=== PATIENT | male | born 1955 | race Caucasian/White ===

== ENCOUNTER 2022-02-26 08:39 | Emergency (ER) | payer BC, MEDICARE ==
[~2022-02-26] VITALS: Ht 182.9 cm; Wt 149.5 kg
[~2022-02-26 08:39] MED LIST: /LOR25TA PO; ACET-654 PO; BISA10SU PR; BISAC5TA PO; COUM1TAB14 OR; COUM1TAB17 PO; DOCU5LIQ PO; HYDR10EL PO; LOVE1INJ SQ; LOVE1INJ SUBQ; MOM30SS OR; MOM30SS PO; OXYC-208 PO; PRED1TAB32 PO; REQU1TAB15 GT; TRIA0.1C60 EXT; XANA0.25 PO; ZANT150T PO; [UNRECOGNIZED DRUG - CODE] EXT
[2022-02-26] MEDS ORDERED: LIDOCAINE VISCOUS 2% SOLN 15ML UDC MT ONE (12:45)
[2022-02-26] MEDS ORDERED: ACETAMINOPHEN 500 MG TAB PO ONE (12:45)
[2022-02-26] MEDS ORDERED: NS 1,000 ML IV ONE (12:45)
[2022-02-26 13:34] LABS: BASO # 0.1 10^3/uL (0.0-0.2); BASO % 0.7 % (0.0-1.0); EOS % 0.1 % (0.0-3.0); LYMPH # 1.6 10^3/uL (1.5-5.0); LYMPH % 21.9 % (24.0-44.0); MEAN CORPUSCULAR HGB CONC 33.8 g/dl (32.0-36.5); MEAN CORPUSCULAR VOLUME 91.8 fl (80.0-96.0); MONO # 0.7 10^3/uL (0.0-0.8); MONO % 9.8 % (2.0-8.0); NEUTROPHILS # 4.8 10^3/uL (1.5-8.5); NEUTROPHILS % 67.1 % (36.0-66.0); PLATELET COUNT, AUTOMATED 204 10^3/uL (150-450); WHITE BLOOD COUNT 7.1 10^3/uL (4.0-10.0)
[2022-02-26 13:41] LABS: RED BLOOD COUNT 5.84 10^6/uL (4.30-6.10)
[2022-02-26 13:42] LABS: HEMATOCRIT 53.6 % (42.0-52.0); HEMOGLOBIN 18.1 g/dl (13.5-17.5)
[2022-02-26 14:04] LABS: FREE T4 1.03 NG/DL (0.89-1.76); THYROID STIMULATING HORMONE 0.623 uIU/ML (0.55-4.78)
[2022-02-26 14:34] LABS: ALBUMIN 3.9 G/DL (3.2-5.2); BILIRUBIN,DIRECT 0.4 MG/DL (<0.4); CALCIUM LEVEL 8.5 MG/DL (8.3-10.6); CREATININE FOR GFR 1.69 MG/DL (0.70-1.30); GLOMERULAR FILTRATION RATE 43.2 (>49); POTASSIUM SERUM 4.8 MMOL/L (3.5-5.1); TOTAL PROTEIN 7.1 G/DL (5.7-8.2)
[2022-02-26] MEDS ORDERED: LIDO2SOL17 PO (14:44)
[2022-02-26 14:50] VITALS: BP 121/76
== END 2022-02-26 15:08 | disposition home or self-care (01) ==
LOC: M ED 08:39
DX: B97.89 Other viral agents as the cause of diseases classified elsewhere (principal); B34.1 Enterovirus infection, unspecified; B34.0 Adenovirus infection, unspecified; K21.9 Gastro-esophageal reflux disease without esophagitis; N40.0 Benign prostatic hyperplasia without lower urinary tract symptoms; E03.9 Hypothyroidism, unspecified; C43.9 Malignant melanoma of skin, unspecified; Z87.01 Personal history of pneumonia (recurrent); G47.33 Obstructive sleep apnea (adult) (pediatric); Z79.899 Other long term (current) drug therapy; Z79.01 Long term (current) use of anticoagulants; Z91.041 Radiographic dye allergy status; Z88.1 Allergy status to other antibiotic agents

== ENCOUNTER 2023-03-01 17:16 | Inpatient (IN) | payer BC, MEDICARE ==
[~2023-03-01] VITALS: Ht 182.9 cm; Wt 159.5 kg
[2023-03-01] VITALS (11 sets, daily range): BP systolic 100–119; BP diastolic 56–69; TEMP 98.1; O2SAT 92–96
[~2023-03-01 17:16] MED LIST changes: +LIDO15SO PO
[2023-03-01 18:04] LABS: BASO # 0.1 10^3/uL (0.0-0.2); BASO % 0.3 % (0.0-1.0); EOS % 0.2 % (0.0-3.0); HEMATOCRIT 55.6 % (42.0-52.0); HEMOGLOBIN 17.9 g/dl (13.5-17.5); LYMPH # 1.1 10^3/uL (1.5-5.0); LYMPH % 7.6 % (24.0-44.0); MEAN CORPUSCULAR HEMOGLOBIN 29.7 pg (27.0-33.0); MEAN CORPUSCULAR HGB CONC 32.2 g/dl (32.0-36.5); MEAN CORPUSCULAR VOLUME 92.4 fl (80.0-96.0); MONO # 0.5 10^3/uL (0.0-0.8); MONO % 3.4 % (2.0-8.0); NEUTROPHILS % 87.3 % (36.0-66.0); PLATELET COUNT, AUTOMATED 190 10^3/uL (150-450); RED BLOOD COUNT 6.02 10^6/uL (4.30-6.10); WHITE BLOOD COUNT 14.9 10^3/uL (4.0-10.0)
[2023-03-01] MEDS ORDERED: NS IV STA (18:12)
[2023-03-01 18:13] LABS: ERYTHROCYTE SEDIMENTATION RATE 19 mm/hr (0-20)
[2023-03-01 18:15] LABS: INR 1.15; PROTHROMBIN TIME 14.4 SECONDS (12.5-14.5)
[2023-03-01] MEDS ORDERED: LevoFLOXacin IV 750 MG in IV 1 EA IV ONE (18:15)
[2023-03-01] MEDS ORDERED: ACETAMINOPHEN TAB 650MG DOSE (2X325MG) PO ONE (18:25)
[2023-03-01 18:30] LABS: C REACTIVE PROTEIN QUANTITATIV 4.5 MG/DL (<1.0)
[2023-03-01] MEDS ORDERED: HYDROCORTISONE 100MG/2ML VIAL IV ONE (18:30)
[2023-03-01 18:31] LABS: CALCIUM LEVEL 8.6 MG/DL (8.3-10.6); CREATININE FOR GFR 2.16 MG/DL (0.70-1.30); GLOMERULAR FILTRATION RATE 32.4 (>49); POTASSIUM SERUM 3.5 MMOL/L (3.5-5.1)
[2023-03-01 18:33] LABS: THYROID STIMULATING HORMONE 1.521 uIU/ML (0.55-4.78)
[2023-03-01 18:34] LABS: FREE T4 0.86 NG/DL (0.89-1.76)
[2023-03-01] MEDS: NOREPINEPHRINE 4MG IN D5 250ML 4 MG in IV 1 EA IV SCH ×6 (18:42→22:09)
[2023-03-01 18:54] LABS: RSV AMPLIFICATION NEGATIVE (NEGATIVE)
[2023-03-01 19:00] LABS: ABG BASE EXCESS -1.2 (-2.0-2.0); ABG HCO3 23.1 MMOL/L (22.0-26.0); ABG O2 SATURATION 93.7 % (95.0-99.0); ABG PARTIAL PRESSURE O2 63.4 mmHg (75.0-100.0); ABG STANDARD HCO3 23.3 MMOL/L. (22.0-26.0); ABG TOTAL CO2 24.3 MMOL/L (23.0-31.0); ABG pH (ARTERIAL) 7.402 UNITS (7.350-7.450)
[2023-03-01] MEDS ORDERED: MED REC IN PROGRESS XX SCH (19:45)
[2023-03-01] MEDS ORDERED: LR 1,000 ML IV ONE (20:15)
[2023-03-01] MEDS ORDERED: BASA100I SC (20:39)
[2023-03-01] MEDS ORDERED: CHOL125C6 PO (20:39)
[2023-03-01] MEDS ORDERED: FURO20TA2 PO (20:39)
[2023-03-01] MEDS ORDERED: HYDR-4468 PO ×2 (20:39)
[2023-03-01] MEDS ORDERED: TEST1INJ3 IM (20:39)
[2023-03-01] MEDS ORDERED: POTA-151 PO (20:39)
[2023-03-01] MEDS ORDERED: LEVO100T5 PO (20:39)
[2023-03-01] MEDS ORDERED: MORP30TASA PO (20:39)
[2023-03-01] MEDS ORDERED: ECOT81TA5 PO (20:39)
[2023-03-01] MEDS ORDERED: HYDR-3719 PO (20:39)
[2023-03-01] MEDS ORDERED: THERTAB21 PO (20:39)
[2023-03-01] MEDS ORDERED: HOME MED LIST COMPLETE! XX SCH (20:40)
[2023-03-01] MEDS: HEPARIN SOD (PORCINE) 5000UNITS/ML 1ML VIAL/SYRINGE SC SCH (22:09)
[2023-03-02] VITALS (37 sets, daily range): BP systolic 83–134; BP diastolic 50–74; TEMP 98.4–102.8; O2SAT 90–100
[2023-03-02] MEDS: NOREPINEPHRINE 4MG IN D5 250ML 4 MG in IV 1 EA IV SCH ×4 (04:25→11:05)
[2023-03-02 05:37] LABS: BASO # 0.1 10^3/uL (0.0-0.2); BASO % 0.4 % (0.0-1.0); HEMATOCRIT 57.4 % (42.0-52.0); HEMOGLOBIN 18.6 g/dl (13.5-17.5); LYMPH # 0.9 10^3/uL (1.5-5.0); MEAN CORPUSCULAR HGB CONC 32.4 g/dl (32.0-36.5); MEAN CORPUSCULAR VOLUME 92.4 fl (80.0-96.0); MONO # 0.6 10^3/uL (0.0-0.8); MONO % 2.5 % (2.0-8.0); NEUTROPHILS # 20.2 10^3/uL (1.5-8.5); NEUTROPHILS % 87.6 % (36.0-66.0); PLATELET COUNT, AUTOMATED 197 10^3/uL (150-450); RED BLOOD COUNT 6.21 10^6/uL (4.30-6.10)
[2023-03-02] MEDS ORDERED: ACETAMINOPHEN *IV* 1,000 MG in IV 1 EA IV ONE (06:00)
[2023-03-02] MEDS ORDERED: NS 1,000 ML IV SCH (06:00)
[2023-03-02] MEDS: HEPARIN SOD (PORCINE) 5000UNITS/ML 1ML VIAL/SYRINGE SC SCH ×3 (06:15→21:25)
[2023-03-02] MEDS: ANUSOL HC 25MG SUPP PR SCH ×2 (06:15)
[2023-03-02 07:05] LABS: ALBUMIN 2.7 G/DL (3.2-5.2); BILIRUBIN,TOTAL 1.3 MG/DL (0.3-1.2); CALCIUM LEVEL 7.7 MG/DL (8.3-10.6); CREATININE FOR GFR 2.68 MG/DL (0.70-1.30); GLOMERULAR FILTRATION RATE 25.3 (>49); MAGNESIUM LEVEL 1.3 MG/DL (1.8-2.4); PHOSPHORUS LEVEL 3.2 MG/DL (2.4-5.1); POTASSIUM SERUM 4.9 MMOL/L (3.5-5.1); TOTAL PROTEIN 5.2 G/DL (5.7-8.2)
[2023-03-02] MEDS ORDERED: LINEZOLID 600 MG in IV 1 EA IV SCH (07:55)
[2023-03-02] MEDS ORDERED: MEROPENEM INJ 2 GM in NS 100 ML IV SCH (07:55)
[2023-03-02] MEDS ORDERED: LR 1,000 ML IV ONE (07:55)
[2023-03-02] MEDS ORDERED: GLUCOSE 4GM CHEW TABLET PO PRN (08:10)
[2023-03-02] MEDS ORDERED: DEXTROSE 50% 50ML SYRINGE IV PRN (08:10)
[2023-03-02] MEDS ORDERED: GLUCAGON INJ 1MG VIAL SC PRN (08:10)
[2023-03-02] MEDS: DOCUSATE SODIUM 100MG CAPSULE PO SCH (09:28)
[2023-03-02] MEDS: MAG SULF 1GM/100ML (MAG RUN) 1 GM in IV 1 EA IV SCH ×2 (09:37→10:43)
[2023-03-02] MEDS ORDERED: MEROPENEM INJ 1 GM in IV 1 EA IV ONE (10:00)
[2023-03-02] MEDS: ACETAMINOPHEN TAB 650MG DOSE (2X325MG) PO PRN ×2 (10:07→11:24)
[2023-03-02] MEDS: HYDROCORTISONE 100MG/2ML VIAL IV SCH ×2 (11:18→17:09)
[2023-03-02] MEDS: INSULIN LISPRO (NovoLOG) PER UNIT SC SCH ×2 (12:00→16:44)
[2023-03-02] MEDS: LINEZOLID 600MG TABLET (ZYVOX) PO SCH ×2 (12:43→20:14)
[2023-03-02] MEDS ORDERED: D5W/0.9% SODIUM CHLORIDE 1,000 ML IV SCH (13:40)
[2023-03-02] MEDS ORDERED: metroNIDAZOLE (FLAGYL) 500MG TABLET PO SCH (14:00)
[2023-03-02 14:52] LABS: C REACTIVE PROTEIN QUANTITATIV 22.1 MG/DL (<1.0)
[2023-03-02] MEDS: CEFEPIME HCL 2 GM in D5W MINI-BAG PLUS 50 ML IV SCH (15:48)
[2023-03-02] MEDS: SENNA 8.6 MG TAB (SENOKOT) PO SCH (20:14)
[2023-03-03] VITALS (21 sets, daily range): BP systolic 94–144; BP diastolic 50–93; TEMP 97.8–100.1; O2SAT 93–99
[2023-03-03] MEDS: HYDROCORTISONE 100MG/2ML VIAL IV SCH ×4 (00:42→20:16)
[2023-03-03] MEDS: CEFEPIME HCL 2 GM in D5W MINI-BAG PLUS 50 ML IV SCH ×2 (03:32→15:09)
[2023-03-03] MEDS ORDERED: MORPHINE 30 MG SA TAB PO ONE (04:00)
[2023-03-03 05:10] LABS: BASO # 0.1 10^3/uL (0.0-0.2); BASO % 0.3 % (0.0-1.0); EOS # 0.8 10^3/uL (0.0-0.5); EOS % 4.3 % (0.0-3.0); HEMATOCRIT 48.5 % (42.0-52.0); LYMPH # 0.7 10^3/uL (1.5-5.0); LYMPH % 3.7 % (24.0-44.0); MEAN CORPUSCULAR HEMOGLOBIN 29.5 pg (27.0-33.0); MEAN CORPUSCULAR HGB CONC 32.6 g/dl (32.0-36.5); MEAN CORPUSCULAR VOLUME 90.5 fl (80.0-96.0); MONO # 0.5 10^3/uL (0.0-0.8); MONO % 2.7 % (2.0-8.0); NEUTROPHILS # 15.1 10^3/uL (1.5-8.5); NEUTROPHILS % 87.1 % (36.0-66.0); PLATELET COUNT, AUTOMATED 161 10^3/uL (150-450); RED BLOOD COUNT 5.36 10^6/uL (4.30-6.10); WHITE BLOOD COUNT 17.4 10^3/uL (4.0-10.0)
[2023-03-03 05:34] LABS: HEMOGLOBIN 15.8 g/dl (13.5-17.5)
[2023-03-03 05:38] LABS: HEMOGLOBIN A1c 5.6 % (4.0-6.0)
[2023-03-03 05:47] LABS: ALBUMIN 2.5 G/DL (3.2-5.2); BILIRUBIN,TOTAL 1.6 MG/DL (0.3-1.2); CALCIUM LEVEL 7.6 MG/DL (8.3-10.6); CREATININE FOR GFR 2.3 MG/DL (0.70-1.30); GLOMERULAR FILTRATION RATE 30.2 (>49); MAGNESIUM LEVEL 1.8 MG/DL (1.8-2.4); POTASSIUM SERUM 4.5 MMOL/L (3.5-5.1); TOTAL PROTEIN 5.1 G/DL (5.7-8.2)
[2023-03-03] MEDS: HEPARIN SOD (PORCINE) 5000UNITS/ML 1ML VIAL/SYRINGE SC SCH ×3 (06:11→20:17)
[2023-03-03] MEDS: INSULIN LISPRO (NovoLOG) PER UNIT SC SCH ×3 (07:30→17:30)
[2023-03-03] MEDS: LINEZOLID 600MG TABLET (ZYVOX) PO SCH ×2 (10:05→20:16)
[2023-03-03] MEDS: DOCUSATE SODIUM 100MG CAPSULE PO SCH (10:05)
[2023-03-03] MEDS ORDERED: PERCOCET 5MG/325MG TAB PO PRN (14:30)
[2023-03-03] MEDS ORDERED: TESTOSTERONE CYPIONATE 100 MG IM SCH (14:30)
[2023-03-03] MEDS: NS 1,000 ML IV SCH (14:58)
[2023-03-03] MEDS ORDERED: ANEXSIA, NORCO 7.5MG/325MG TABLET(HYDROCODONE/APAP) PO PRN (15:05)
[2023-03-03] MEDS: MORPHINE 30 MG SA TAB PO PRN (15:40)
[2023-03-03] MEDS: ASPIRIN 81MG ENTERIC TABLET PO SCH (20:17)
[2023-03-03] MEDS: SENNA 8.6 MG TAB (SENOKOT) PO SCH (20:17)
[2023-03-03] MEDS: MULTIVITAMINS/MINERALS THERAP 1 TAB PO SCH (20:17)
[2023-03-04] MEDS: CEFEPIME HCL 2 GM in D5W MINI-BAG PLUS 50 ML IV SCH ×2 (03:27→15:34)
[2023-03-04] MEDS: NS 1,000 ML IV SCH (03:27)
[2023-03-04] MEDS: HYDROCORTISONE 100MG/2ML VIAL IV SCH ×2 (03:28→18:04)
[2023-03-04 03:32] VITALS: BP 127/66; TEMP 97.9; O2SAT 95
[2023-03-04] MEDS: HEPARIN SOD (PORCINE) 5000UNITS/ML 1ML VIAL/SYRINGE SC SCH ×3 (05:29→21:10)
[2023-03-04] MEDS: LEVOTHYROXINE 100MCG TABLET (0.1MG) PO SCH (05:29)
[2023-03-04] MEDS: MORPHINE 30 MG SA TAB PO PRN ×2 (05:30→21:11)
[2023-03-04 06:27] LABS: BASO % 0.2 % (0.0-1.0); EOS % 0.1 % (0.0-3.0); HEMATOCRIT 47.6 % (42.0-52.0); HEMOGLOBIN 15.6 g/dl (13.5-17.5); LYMPH # 0.9 10^3/uL (1.5-5.0); LYMPH % 6.2 % (24.0-44.0); MEAN CORPUSCULAR HEMOGLOBIN 29.8 pg (27.0-33.0); MEAN CORPUSCULAR HGB CONC 32.8 g/dl (32.0-36.5); MEAN CORPUSCULAR VOLUME 90.8 fl (80.0-96.0); MONO # 0.6 10^3/uL (0.0-0.8); MONO % 3.9 % (2.0-8.0); NEUTROPHILS # 13.3 10^3/uL (1.5-8.5); NEUTROPHILS % 88.5 % (36.0-66.0); PLATELET COUNT, AUTOMATED 181 10^3/uL (150-450); RED BLOOD COUNT 5.24 10^6/uL (4.30-6.10)
[2023-03-04 06:40] LABS: ALBUMIN 2.5 G/DL (3.2-5.2); ALKALINE PHOSPHATASE 111 U/L (46-116); ALT/SGPT 70 U/L (7.0-40); AST/SGOT 91 U/L (<34); BILIRUBIN,TOTAL 1.3 MG/DL (0.3-1.2); BLOOD UREA NITROGEN 28 MG/DL (9-23); CALCIUM LEVEL 7.7 MG/DL (8.3-10.6); CARBON DIOXIDE LEVEL 23 MMOL/L (20-31); CHLORIDE LEVEL 110 MMOL/L (98-107); CREATININE FOR GFR 1.81 MG/DL (0.70-1.30); GLOMERULAR FILTRATION RATE 39.8 (>49); GLUCOSE, FASTING 121 MG/DL (74-106); MAGNESIUM LEVEL 2.1 MG/DL (1.8-2.4); POTASSIUM SERUM 4.6 MMOL/L (3.5-5.1); SODIUM LEVEL 141 MMOL/L (136-145); TOTAL PROTEIN 5.3 G/DL (5.7-8.2)
[2023-03-04] MEDS: INSULIN LISPRO (NovoLOG) PER UNIT SC SCH ×3 (07:24→16:52)
[2023-03-04 07:49] VITALS: BP 152/86; TEMP 98; O2SAT 94
[2023-03-04 07:57] LABS: HEPATITIS C VIRUS ABY INDEX 0.04 INDEX (<0.8)
[2023-03-04 07:58] LABS: HEPATITIS B CORE ANTIBODY IGM NEGATIVE (NEGATIVE)
[2023-03-04] MEDS: VITAMIN D 1,000 INTERNATIONAL UNITS TABLET PO SCH (08:21)
[2023-03-04] MEDS: DOCUSATE SODIUM 100MG CAPSULE PO SCH (08:21)
[2023-03-04] MEDS: LINEZOLID 600MG TABLET (ZYVOX) PO SCH ×2 (08:21→21:11)
[2023-03-04 12:05] VITALS: BP 137/79; TEMP 98; O2SAT 91
[2023-03-04] MEDS ORDERED: FUROSEMIDE 20MG/2ML VIAL IV ONE (15:20)
[2023-03-04 16:00] VITALS: BP 147/86; TEMP 98; O2SAT 94
[2023-03-04 20:16] VITALS: BP 152/113; TEMP 97.9; O2SAT 95
[2023-03-04] MEDS: SENNA 8.6 MG TAB (SENOKOT) PO SCH (21:00)
[2023-03-04] MEDS: ASPIRIN 81MG ENTERIC TABLET PO SCH (21:10)
[2023-03-04] MEDS: MULTIVITAMINS/MINERALS THERAP 1 TAB PO SCH (21:11)
[2023-03-04 23:09] VITALS: BP 146/77; TEMP 98.7; O2SAT 94
[2023-03-05 03:00] VITALS: BP 163/94; TEMP 97.4; O2SAT 97
[2023-03-05] MEDS: LEVOTHYROXINE 100MCG TABLET (0.1MG) PO SCH (05:04)
[2023-03-05] MEDS: CEFEPIME HCL 2 GM in D5W MINI-BAG PLUS 50 ML IV SCH (05:05)
[2023-03-05] MEDS: HEPARIN SOD (PORCINE) 5000UNITS/ML 1ML VIAL/SYRINGE SC SCH ×2 (05:05→13:56)
[2023-03-05] MEDS: HYDROCORTISONE 100MG/2ML VIAL IV SCH (05:05)
[2023-03-05 07:09] LABS: BASO # 0.1 10^3/uL (0.0-0.2); BASO % 0.6 % (0.0-1.0); EOS # 0.1 10^3/uL (0.0-0.5); EOS % 0.9 % (0.0-3.0); HEMATOCRIT 46.7 % (42.0-52.0); HEMOGLOBIN 15.1 g/dl (13.5-17.5); LYMPH # 1.4 10^3/uL (1.5-5.0); LYMPH % 15.3 % (24.0-44.0); MEAN CORPUSCULAR HEMOGLOBIN 29.4 pg (27.0-33.0); MEAN CORPUSCULAR HGB CONC 32.3 g/dl (32.0-36.5); MONO # 0.6 10^3/uL (0.0-0.8); MONO % 6.6 % (2.0-8.0); NEUTROPHILS # 6.9 10^3/uL (1.5-8.5); NEUTROPHILS % 75.9 % (36.0-66.0); PLATELET COUNT, AUTOMATED 180 10^3/uL (150-450); RED BLOOD COUNT 5.13 10^6/uL (4.30-6.10); WHITE BLOOD COUNT 9.1 10^3/uL (4.0-10.0)
[2023-03-05 07:45] LABS: C REACTIVE PROTEIN QUANTITATIV 11.4 MG/DL (<1.0)
[2023-03-05 07:46] VITALS: BP 156/93; TEMP 98; O2SAT 97
[2023-03-05 07:47] LABS: ALBUMIN 2.4 G/DL (3.2-5.2); BILIRUBIN,TOTAL 0.9 MG/DL (0.3-1.2); CALCIUM LEVEL 8.2 MG/DL (8.3-10.6); CREATININE FOR GFR 1.66 MG/DL (0.70-1.30); GLOMERULAR FILTRATION RATE 43.9 (>49); MAGNESIUM LEVEL 1.9 MG/DL (1.8-2.4); POTASSIUM SERUM 4.2 MMOL/L (3.5-5.1); TOTAL PROTEIN 5.2 G/DL (5.7-8.2)
[2023-03-05] MEDS: INSULIN LISPRO (NovoLOG) PER UNIT SC SCH ×2 (08:37→12:00)
[2023-03-05] MEDS: DOCUSATE SODIUM 100MG CAPSULE PO SCH (08:37)
[2023-03-05] MEDS ORDERED: PILL CUTTER 1 EACH XX PRN (09:05)
[2023-03-05] MEDS: LINEZOLID 600MG TABLET (ZYVOX) PO SCH (09:07)
[2023-03-05] MEDS: MORPHINE 30 MG SA TAB PO PRN (09:07)
[2023-03-05] MEDS: VITAMIN D 1,000 INTERNATIONAL UNITS TABLET PO SCH (09:07)
[2023-03-05] MEDS ORDERED: LINE1TAB6 PO (11:18)
[2023-03-05] MEDS ORDERED: FURO20TA2 PO (11:21)
[2023-03-05] MEDS ORDERED: HYDR-4468 PO ×2 (11:29→11:32)
[2023-03-05] MEDS ORDERED: POTA-150 PO (11:32)
[2023-03-05] MEDS ORDERED: HYDROCORTISONE 10 MG TAB PO SCH (21:00)
== END 2023-03-05 14:29 | disposition home or self-care (01) | DRG 720 ==
LOC: M ED 17:16 → EDBD 17:16 → EDSEX 17:16 → M ED INP 19:48 → ENRESERV 20:27 → M ICU 21:20 → M PCU 03-03 18:19
PROVIDERS: ADMIT Internal Medicine Pulmonary Disease; ATTEND Internal Medicine
PROC: B246ZZZ Ultrasonography of Right and Left Heart (ICD-10-PCS; principal; 2023-03-02)
DX: A41.9 Sepsis, unspecified organism (principal); R65.21 Severe sepsis with septic shock; N17.9 Acute kidney failure, unspecified; E87.20 Acidosis, unspecified; E13.22 Other specified diabetes mellitus with diabetic chronic kidney disease; E13.40 Other specified diabetes mellitus with diabetic neuropathy, unspecified; E27.2 Addisonian crisis; Z68.42 Body mass index [BMI] 45.0-49.9, adult; N18.30 Chronic kidney disease, stage 3 unspecified; R53.1 Weakness; E03.9 Hypothyroidism, unspecified; E66.9 Obesity, unspecified; E55.9 Vitamin D deficiency, unspecified; L03.115 Cellulitis of right lower limb; G47.33 Obstructive sleep apnea (adult) (pediatric); R74.01 Elevation of levels of liver transaminase levels; M79.89 Other specified soft tissue disorders; K59.09 Other constipation; Z98.1 Arthrodesis status; Z79.52 Long term (current) use of systemic steroids; Z79.899 Other long term (current) drug therapy; Z79.01 Long term (current) use of anticoagulants; Z88.1 Allergy status to other antibiotic agents; Z91.041 Radiographic dye allergy status; Z92.21 Personal history of antineoplastic chemotherapy; Z79.4 Long term (current) use of insulin; Z79.890 Hormone replacement therapy; Z85.820 Personal history of malignant melanoma of skin; Z96.643 Presence of artificial hip joint, bilateral; Z85.828 Personal history of other malignant neoplasm of skin; T38.0X5D Adverse effect of glucocorticoids and synthetic analogues, subsequent encounter; T45.1X5D Adverse effect of antineoplastic and immunosuppressive drugs, subsequent encounter; Z85.528 Personal history of other malignant neoplasm of kidney

== ENCOUNTER 2023-10-01 13:12 | Inpatient (IN) | payer BC, MEDICARE ==
[~2023-10-01] VITALS: Ht 182.9 cm; Wt 159.4 kg
[2023-10-01] MEDS: POTASSIUM CHLORIDE 10MEQ SR TABLET PO SCH (09:00)
[~2023-10-01 13:12] MED LIST changes: +BASA100I SC; +CHOL125C6 PO; +ECOT81TA5 PO; +FURO20TA2 PO; +HYDR-3719 PO; +HYDR-4468 PO; +LEVO100T5 PO; -LIDO15SO PO; +LIDO15SO8 PO; +LINE1TAB6 PO; +MORP30TASA PO; +POTA-150 PO; +POTA-151 PO; +TEST1INJ3 IM; +THERTAB21 PO
[2023-10-01 14:07] LABS: BASO # 0.1 10^3/uL (0.0-0.2); BASO % 0.6 % (0.0-1.0); EOS % 0.3 % (0.0-3.0); HEMATOCRIT 51.8 % (42.0-52.0); LYMPH # 1.2 10^3/uL (1.5-5.0); LYMPH % 13.6 % (24.0-44.0); MEAN CORPUSCULAR HEMOGLOBIN 29.1 pg (27.0-33.0); MEAN CORPUSCULAR HGB CONC 32.8 g/dl (32.0-36.5); MEAN CORPUSCULAR VOLUME 88.5 fl (80.0-96.0); MONO # 0.6 10^3/uL (0.0-0.8); MONO % 7.1 % (2.0-8.0); NEUTROPHILS # 7.1 10^3/uL (1.5-8.5); NEUTROPHILS % 77.7 % (36.0-66.0); PLATELET COUNT, AUTOMATED 189 10^3/uL (150-450); RED BLOOD COUNT 5.85 10^6/uL (4.30-6.10); WHITE BLOOD COUNT 9.1 10^3/uL (4.0-10.0)
[2023-10-01 14:15] LABS: ALBUMIN 3.8 G/DL (3.2-5.2); BILIRUBIN,TOTAL 1.9 MG/DL (0.3-1.2); CALCIUM LEVEL 8.4 MG/DL (8.3-10.6); CREATININE FOR GFR 1.81 MG/DL (0.70-1.30); GLOMERULAR FILTRATION RATE 39.7 (>42); POTASSIUM SERUM 3.8 MMOL/L (3.5-5.1); TOTAL PROTEIN 6.3 G/DL (5.7-8.2)
[2023-10-01] MEDS: ACETAMINOPHEN TAB 650MG DOSE (2X325MG) PO ONE (14:17)
[2023-10-01] MEDS ORDERED: VANCOMYCIN HCL 2,000 MG in D5W 500 ML IV ONE (15:30)
[2023-10-01] MEDS: HYDROCORTISONE 100MG/2ML VIAL IV ONE (15:40)
[2023-10-01] MEDS: PIPERACILLIN/TAZOBACTAM SOD 4.5 GM in D5W MINI-BAG PLUS 50 ML IV ONE (15:40)
[2023-10-01] MEDS: NS IV ONE (15:41)
[2023-10-01 15:43] LABS: INR 1.19; PARTIAL THROMBOPLASTIN TIME 30.5 SECONDS (24.8-34.2); PROTHROMBIN TIME 14.7 SECONDS (12.5-14.5)
[2023-10-01] MEDS: MORPHINE 4 MG/ML 1ML VIAL IV ONE (15:43)
[2023-10-01 15:48] LABS: C REACTIVE PROTEIN QUANTITATIV 9.2 MG/DL (<1.0)
[2023-10-01 16:01] LABS: PROCALCITONIN 0.3 ng/ml
[2023-10-01] MEDS ORDERED: VANCOMYCIN HCL 1,000 MG, VIAL MATE ADAPTER 1 EACH in D5W 250 ML IV SCH (16:45)
[2023-10-01 16:57] LABS: ABG BASE EXCESS -2.3 (-2.0-2.0); ABG HCO3 21.8 MMOL/L (22.0-26.0); ABG O2 SATURATION 94.8 % (95.0-99.0); ABG PARTIAL PRESSURE CO2 36.2 mmHg (35.0-45.0); ABG PARTIAL PRESSURE O2 71.1 mmHg (75.0-100.0); ABG STANDARD HCO3 22.5 MMOL/L. (22.0-26.0); ABG TOTAL CO2 22.9 MMOL/L (23.0-31.0); ABG pH (ARTERIAL) 7.398 UNITS (7.350-7.450)
[2023-10-01] MEDS: VANCOMYCIN HCL 1,000 MG, VIAL MATE ADAPTER 1 EACH in D5W 250 ML IV ONE ×2 (17:09→18:31)
[2023-10-01] MEDS ORDERED: AMOX500C PO (17:39)
[2023-10-01] MEDS ORDERED: LEVO100T5 PO (17:44)
[2023-10-01 17:45] VITALS: BP 134/85; TEMP 97.9; O2SAT 94
[2023-10-01] MEDS ORDERED: HOME MED LIST COMPLETE! XX SCH ×3 (17:45→19:05)
[2023-10-01 17:51] LABS: ERYTHROCYTE SEDIMENTATION RATE 34 mm/hr (0-20)
[2023-10-01] MEDS: MULTIVITAMINS/MINERALS THERAP 1 TAB PO SCH (18:32)
[2023-10-01] MEDS: ASPIRIN 81MG ENTERIC TABLET PO SCH (18:32)
[2023-10-01] MEDS ORDERED: GLUCOSE 4 GM CHEW PO PRN (18:35)
[2023-10-01] MEDS ORDERED: GLUCAGON INJ 1MG VIAL SC PRN (18:35)
[2023-10-01] MEDS ORDERED: DEXTROSE 50% 50ML SYRINGE IV PRN (18:35)
[2023-10-01] MEDS: ANEXSIA, NORCO 7.5MG/325MG TABLET(HYDROCODONE/APAP) PO ONE (18:45)
[2023-10-01] MEDS ORDERED: MORP30TASA PO (19:01)
[2023-10-01] MEDS: MORPHINE 10 MG/ML 1ML VIAL IV ONE (19:08)
[2023-10-01 19:36] VITALS: BP 140/88; TEMP 97.5; O2SAT 93
[2023-10-01] MEDS: MORPHINE 30 MG SA TAB PO PRN (20:23)
[2023-10-01 20:26] LABS: HEMOGLOBIN A1c 5.6 % (4.0-6.0)
[2023-10-01] MEDS: INSULIN LISPRO (NovoLOG) PER UNIT SC SCH (20:34)
[2023-10-01] MEDS ORDERED: HYDROCORTISONE 5MG TABLET PO SCH (21:00)
[2023-10-01] MEDS: HYDROMORPHONE HCL 0.5 MG/ 0.5 ML SYRINGE IV ONE ×2 (21:58→23:09)
[2023-10-01] MEDS: PIPERACILLIN/TAZOBACTAM SOD 3.375 GM in D5W MINI-BAG PLUS 50 ML IV SCH (23:09)
[2023-10-02] MEDS: ANEXSIA, NORCO 7.5MG/325MG TABLET(HYDROCODONE/APAP) PO PRN (00:18)
[2023-10-02] MEDS: HYDROMORPHONE HCL 0.5 MG/ 0.5 ML SYRINGE IV PRN (01:26)
[2023-10-02] MEDS: VANCOMYCIN HCL 750 MG, VIAL MATE ADAPTER 1 EACH in D5W 250 ML IV SCH ×2 (02:33→15:21)
[2023-10-02] MEDS: FIORICET TAB PO ONE ×2 (03:11→16:40)
[2023-10-02 04:00] VITALS: BP 132/73; TEMP 97.5; O2SAT 95
[2023-10-02 06:14] LABS: BASO % 0.5 % (0.0-1.0); EOS # 0.1 10^3/uL (0.0-0.5); EOS % 1.3 % (0.0-3.0); HEMATOCRIT 48.1 % (42.0-52.0); HEMOGLOBIN 15.6 g/dl (13.5-17.5); LYMPH # 0.7 10^3/uL (1.5-5.0); LYMPH % 8.8 % (24.0-44.0); MEAN CORPUSCULAR HEMOGLOBIN 29.3 pg (27.0-33.0); MEAN CORPUSCULAR HGB CONC 32.4 g/dl (32.0-36.5); MEAN CORPUSCULAR VOLUME 90.4 fl (80.0-96.0); MONO # 0.4 10^3/uL (0.0-0.8); MONO % 4.8 % (2.0-8.0); NEUTROPHILS % 84.1 % (36.0-66.0); PLATELET COUNT, AUTOMATED 177 10^3/uL (150-450); RED BLOOD COUNT 5.32 10^6/uL (4.30-6.10); WHITE BLOOD COUNT 8.3 10^3/uL (4.0-10.0)
[2023-10-02] MEDS: LEVOTHYROXINE 100MCG TABLET (0.1MG) PO SCH (06:16)
[2023-10-02 06:49] LABS: CALCIUM LEVEL 7.6 MG/DL (8.3-10.6); CREATININE FOR GFR 1.89 MG/DL (0.70-1.30); GLOMERULAR FILTRATION RATE 37.7 (>42); POTASSIUM SERUM 4.7 MMOL/L (3.5-5.1)
[2023-10-02 08:00] VITALS: BP 133/73; TEMP 97.5; O2SAT 94
[2023-10-02] MEDS: MIDODRINE 5 MG TAB PO SCH (08:00)
[2023-10-02] MEDS: LEVEMIR (INSULIN DETEMIR) 1 UNITS/0.01ML SC SCH (08:09)
[2023-10-02] MEDS: HYDROCORTISONE 5MG TABLET PO SCH (08:16)
[2023-10-02] MEDS: MORPHINE 30 MG SA TAB PO SCH (08:17)
[2023-10-02 12:17] VITALS: BP 126/72; TEMP 97.5; O2SAT 94
[2023-10-02 16:00] VITALS: BP 125/71; TEMP 97.5; O2SAT 95
[2023-10-02] MEDS: INSULIN LISPRO (NovoLOG) PER UNIT SC SCH (17:34)
[2023-10-02] MEDS: VANCOMYCIN HCL 500 MG in D5W MINI-BAG PLUS 100 ML IV SCH (17:55)
[2023-10-02 20:00] VITALS: BP 120/76; TEMP 97.5; O2SAT 95
[2023-10-02] MEDS: FIORICET TAB PO PRN (21:39)
[2023-10-03] VITALS: BP 124/74; TEMP 97.3; O2SAT 92
[2023-10-03 04:00] VITALS: BP 149/55; TEMP 97.5; O2SAT 93
[2023-10-03 06:53] LABS: BASO % 0.5 % (0.0-1.0); EOS # 0.6 10^3/uL (0.0-0.5); EOS % 7.4 % (0.0-3.0); HEMATOCRIT 48.1 % (42.0-52.0); HEMOGLOBIN 15.7 g/dl (13.5-17.5); LYMPH # 1.4 10^3/uL (1.5-5.0); LYMPH % 17.9 % (24.0-44.0); MEAN CORPUSCULAR HEMOGLOBIN 29.2 pg (27.0-33.0); MEAN CORPUSCULAR HGB CONC 32.6 g/dl (32.0-36.5); MEAN CORPUSCULAR VOLUME 89.4 fl (80.0-96.0); MONO # 0.7 10^3/uL (0.0-0.8); MONO % 8.4 % (2.0-8.0); NEUTROPHILS # 5.2 10^3/uL (1.5-8.5); NEUTROPHILS % 65.4 % (36.0-66.0); PLATELET COUNT, AUTOMATED 194 10^3/uL (150-450); RED BLOOD COUNT 5.38 10^6/uL (4.30-6.10); WHITE BLOOD COUNT 7.9 10^3/uL (4.0-10.0)
[2023-10-03 07:21] LABS: CALCIUM LEVEL 8.3 MG/DL (8.3-10.6); CREATININE FOR GFR 2.24 MG/DL (0.70-1.30); POTASSIUM SERUM 4.2 MMOL/L (3.5-5.1)
[2023-10-03 08:00] VITALS: BP 138/96; TEMP 97.5; O2SAT 96
[2023-10-03] MEDS: SENNA 8.6 MG TAB (SENOKOT) PO SCH (09:51)
[2023-10-03] MEDS: MIRALAX *UNIT DOSE* 17GM PACKET PO PRN (09:51)
[2023-10-03 12:00] VITALS: BP 129/88; TEMP 98.1; O2SAT 94
[2023-10-03 16:10] VITALS: BP 134/87; TEMP 97.7; O2SAT 97
[2023-10-03 20:00] VITALS: BP 137/87; TEMP 97.3; O2SAT 97
[2023-10-03] MEDS: LINEZOLID 600MG TABLET (ZYVOX) PO SCH (20:48)
[2023-10-03] MEDS: MEROPENEM INJ 1 GM in IV 1 EA IV SCH (20:48)
[2023-10-04] VITALS (7 sets, daily range): BP systolic 127–152; BP diastolic 85–92; TEMP 97.5–97.9; O2SAT 90–97
[2023-10-04 07:52] LABS: BASO # 0.1 10^3/uL (0.0-0.2); BASO % 1.1 % (0.0-1.0); EOS # 0.5 10^3/uL (0.0-0.5); HEMATOCRIT 49.3 % (42.0-52.0); HEMOGLOBIN 15.6 g/dl (13.5-17.5); LYMPH % 31.6 % (24.0-44.0); MEAN CORPUSCULAR HEMOGLOBIN 28.9 pg (27.0-33.0); MEAN CORPUSCULAR HGB CONC 31.6 g/dl (32.0-36.5); MEAN CORPUSCULAR VOLUME 91.5 fl (80.0-96.0); MONO # 0.6 10^3/uL (0.0-0.8); MONO % 9.8 % (2.0-8.0); NEUTROPHILS # 3.2 10^3/uL (1.5-8.5); NEUTROPHILS % 49.2 % (36.0-66.0); PLATELET COUNT, AUTOMATED 217 10^3/uL (150-450); RED BLOOD COUNT 5.39 10^6/uL (4.30-6.10); WHITE BLOOD COUNT 6.5 10^3/uL (4.0-10.0)
[2023-10-04 08:14] LABS: CALCIUM LEVEL 8.4 MG/DL (8.3-10.6); CREATININE FOR GFR 2.21 MG/DL (0.70-1.30); GLOMERULAR FILTRATION RATE 31.5 (>42); POTASSIUM SERUM 4.2 MMOL/L (3.5-5.1)
[2023-10-04] MEDS: LEVEMIR (INSULIN DETEMIR) 1 UNITS/0.01ML SC SCH (08:32)
[2023-10-04] MEDS: FUROSEMIDE 100MG/10ML VIAL IV ONE (10:34)
[2023-10-04] MEDS: ISOSORBIDE DIN. (ISORDIL) 20 MG TAB PO SCH (12:00)
[2023-10-04] MEDS: MUPIROCIN 2% OINT 22 GM TUBE TOP SCH (12:32)
[2023-10-05 04:00] VITALS: BP 99/67; TEMP 97.7; O2SAT 96
[2023-10-05] MEDS: LEVOTHYROXINE 100MCG TABLET (0.1MG) PO SCH (06:01)
[2023-10-05 06:47] LABS: BASO # 0.1 10^3/uL (0.0-0.2); EOS # 0.4 10^3/uL (0.0-0.5); EOS % 6.7 % (0.0-3.0); HEMATOCRIT 48.3 % (42.0-52.0); HEMOGLOBIN 15.3 g/dl (13.5-17.5); LYMPH # 2.2 10^3/uL (1.5-5.0); LYMPH % 34.4 % (24.0-44.0); MEAN CORPUSCULAR HEMOGLOBIN 28.6 pg (27.0-33.0); MEAN CORPUSCULAR HGB CONC 31.7 g/dl (32.0-36.5); MEAN CORPUSCULAR VOLUME 90.3 fl (80.0-96.0); MONO # 0.7 10^3/uL (0.0-0.8); MONO % 11.1 % (2.0-8.0); NEUTROPHILS # 2.9 10^3/uL (1.5-8.5); NEUTROPHILS % 46.5 % (36.0-66.0); PLATELET COUNT, AUTOMATED 224 10^3/uL (150-450); RED BLOOD COUNT 5.35 10^6/uL (4.30-6.10); WHITE BLOOD COUNT 6.3 10^3/uL (4.0-10.0)
[2023-10-05 07:18] LABS: CALCIUM LEVEL 8.4 MG/DL (8.3-10.6); CREATININE FOR GFR 2.27 MG/DL (0.70-1.30); GLOMERULAR FILTRATION RATE 30.5 (>42); POTASSIUM SERUM 3.7 MMOL/L (3.5-5.1)
[2023-10-05 12:00] VITALS: BP 148/79; TEMP 97.9; O2SAT 95
[2023-10-05 22:16] VITALS: BP 143/82; TEMP 97.9; O2SAT 95
[2023-10-06 03:41] VITALS: BP 125/71; TEMP 97.5; O2SAT 93
[2023-10-06 06:04] LABS: BASO % 0.6 % (0.0-1.0); EOS # 0.4 10^3/uL (0.0-0.5); EOS % 7.1 % (0.0-3.0); HEMATOCRIT 47.5 % (42.0-52.0); HEMOGLOBIN 15.2 g/dl (13.5-17.5); LYMPH # 2.3 10^3/uL (1.5-5.0); LYMPH % 37.8 % (24.0-44.0); MEAN CORPUSCULAR HEMOGLOBIN 28.8 pg (27.0-33.0); MEAN CORPUSCULAR VOLUME 90.1 fl (80.0-96.0); MONO # 0.6 10^3/uL (0.0-0.8); MONO % 9.1 % (2.0-8.0); NEUTROPHILS # 2.8 10^3/uL (1.5-8.5); NEUTROPHILS % 45.1 % (36.0-66.0); PLATELET COUNT, AUTOMATED 233 10^3/uL (150-450); RED BLOOD COUNT 5.27 10^6/uL (4.30-6.10); WHITE BLOOD COUNT 6.2 10^3/uL (4.0-10.0)
[2023-10-06 06:26] LABS: CALCIUM LEVEL 8.5 MG/DL (8.3-10.6); CREATININE FOR GFR 1.95 MG/DL (0.70-1.30); GLOMERULAR FILTRATION RATE 36.4 (>42); POTASSIUM SERUM 3.9 MMOL/L (3.5-5.1)
[2023-10-06] MEDS: LEVEMIR (INSULIN DETEMIR) 1 UNITS/0.01ML SC SCH (08:58)
[2023-10-06] MEDS: FUROSEMIDE 100MG/10ML VIAL IV ONE (11:17)
[2023-10-06] MEDS: POTASSIUM CHLORIDE 10MEQ SR TABLET PO ONE (11:18)
[2023-10-06 12:00] VITALS: BP 143/83; TEMP 97.7; O2SAT 95
[2023-10-06 20:00] VITALS: BP 140/80; TEMP 97.5; O2SAT 98
[2023-10-07 04:20] VITALS: BP 129/74; TEMP 97.5; O2SAT 96
[2023-10-07 06:24] LABS: BASO # 0.1 10^3/uL (0.0-0.2); BASO % 1.1 % (0.0-1.0); EOS # 0.4 10^3/uL (0.0-0.5); EOS % 6.7 % (0.0-3.0); HEMATOCRIT 48.7 % (42.0-52.0); HEMOGLOBIN 15.7 g/dl (13.5-17.5); LYMPH # 2.4 10^3/uL (1.5-5.0); LYMPH % 37.2 % (24.0-44.0); MEAN CORPUSCULAR HEMOGLOBIN 29.2 pg (27.0-33.0); MEAN CORPUSCULAR HGB CONC 32.2 g/dl (32.0-36.5); MEAN CORPUSCULAR VOLUME 90.5 fl (80.0-96.0); MONO # 0.5 10^3/uL (0.0-0.8); MONO % 8.1 % (2.0-8.0); NEUTROPHILS # 3.1 10^3/uL (1.5-8.5); NEUTROPHILS % 46.4 % (36.0-66.0); PLATELET COUNT, AUTOMATED 238 10^3/uL (150-450); RED BLOOD COUNT 5.38 10^6/uL (4.30-6.10); WHITE BLOOD COUNT 6.6 10^3/uL (4.0-10.0)
[2023-10-07 06:54] LABS: CALCIUM LEVEL 8.7 MG/DL (8.3-10.6); CREATININE FOR GFR 1.99 MG/DL (0.70-1.30); GLOMERULAR FILTRATION RATE 35.5 (>42); POTASSIUM SERUM 3.9 MMOL/L (3.5-5.1)
[2023-10-07] MEDS ORDERED: SENO8.6T10 PO (09:33)
[2023-10-07 12:00] VITALS: BP 156/93; TEMP 97.9; O2SAT 97
== END 2023-10-07 13:05 | disposition home or self-care (01) | DRG 720 ==
LOC: M ED 13:12 → M ED INP 16:35 → M MSPAV 17:39
PROVIDERS: ADMIT General Practice; ATTEND Internal Medicine Nephrology
DX: A41.9 Sepsis, unspecified organism (principal); N17.9 Acute kidney failure, unspecified; I95.89 Other hypotension; E27.3 Drug-induced adrenocortical insufficiency; E11.22 Type 2 diabetes mellitus with diabetic chronic kidney disease; E11.40 Type 2 diabetes mellitus with diabetic neuropathy, unspecified; E11.622 Type 2 diabetes mellitus with other skin ulcer; L97.919 Non-pressure chronic ulcer of unspecified part of right lower leg with unspecified severity; E11.65 Type 2 diabetes mellitus with hyperglycemia; E66.01 Morbid (severe) obesity due to excess calories; Z68.42 Body mass index [BMI] 45.0-49.9, adult; L03.115 Cellulitis of right lower limb; K76.0 Fatty (change of) liver, not elsewhere classified; N18.30 Chronic kidney disease, stage 3 unspecified; R60.0 Localized edema; G47.33 Obstructive sleep apnea (adult) (pediatric); E03.9 Hypothyroidism, unspecified; I89.0 Lymphedema, not elsewhere classified; I87.2 Venous insufficiency (chronic) (peripheral); T45.1X5A Adverse effect of antineoplastic and immunosuppressive drugs, initial encounter; Z85.820 Personal history of malignant melanoma of skin; Z85.528 Personal history of other malignant neoplasm of kidney; E55.9 Vitamin D deficiency, unspecified; E29.1 Testicular hypofunction; G89.29 Other chronic pain; K59.09 Other constipation; K02.9 Dental caries, unspecified; Z85.828 Personal history of other malignant neoplasm of skin; Z92.21 Personal history of antineoplastic chemotherapy; Z98.1 Arthrodesis status; Z96.643 Presence of artificial hip joint, bilateral; T38.0X5A Adverse effect of glucocorticoids and synthetic analogues, initial encounter; Z86.14 Personal history of Methicillin resistant Staphylococcus aureus infection; Z79.82 Long term (current) use of aspirin; Z79.890 Hormone replacement therapy; Z79.891 Long term (current) use of opiate analgesic; Z79.899 Other long term (current) drug therapy; Z88.1 Allergy status to other antibiotic agents; Z91.041 Radiographic dye allergy status

== ENCOUNTER → 2024-10-05 | Outpatient (CLI) | payer MEDICARE, BC ==
[~2024-10-05] MED LIST changes: +AMOX500C PO; +SENO8.6T10 PO
[2024-10-05 14:25] LABS: BASO # 0.1 10^3/uL (0.0-0.2); BASO % 1.0 % (0.0-1.0); EOS # 0.4 10^3/uL (0.0-0.5); EOS % 6.7 % (0.0-3.0); LYMPH # 1.5 10^3/uL (1.5-5.0); LYMPH % 25.0 % (24.0-44.0); MONO # 0.7 10^3/uL (0.0-0.8); MONO % 11.6 % (2.0-8.0); NEUTROPHILS # 3.3 10^3/uL (1.5-8.5); NEUTROPHILS % 55.5 % (36.0-66.0); PLATELET COUNT, AUTOMATED 215 10^3/uL (150-450)
[2024-10-05 14:26] LABS: APPEARANCE, URINE CLEAR (CLEAR); BACTERIA, URINE AUTO NEGATIVE (NEGATIVE); BILIRUBIN, URINE AUTO NEGATIVE (NEGATIVE); BLOOD, URINE BLOOD 1+ (NEGATIVE); GLUCOSE, URINE (UA) AUTO 1+ mg/dL (NEGATIVE); KETONE, URINE AUTO NEGATIVE (NEGATIVE); LEUKOCYTE ESTERASE, URINE AUTO NEGATIVE (NEGATIVE); MUCUS, URINE SMALL (NEGATIVE); NITRITE, URINE AUTO NEGATIVE (NEGATIVE); PROTEIN, URINE AUTO 1+ mg/dL (NEGATIVE); RBC, URINE AUTO 2 /HPF (0-3); SPECIFIC GRAVITY URINE AUTO 1.024 (1.002-1.035); SQUAMOUS EPITHELIAL CELL UR AU 0 /HPF (0-6); UROBILINOGEN, URINE AUTO 0.2 mg/dL (0.0-2.0); WBC, URINE AUTO 1 /HPF (0-3)
[2024-10-05 14:34] LABS: ERYTHROCYTE SEDIMENTATION RATE 21 mm/hr (0-20)
[2024-10-05 15:01] LABS: PSA SCREENING 2.19 NG/ML (< 4.00)
[2024-10-05 15:09] LABS: C REACTIVE PROTEIN QUANTITATIV 0.76 MG/DL (<1.0)
[2024-10-05 15:11] LABS: ALT/SGPT 27.0 U/L (7.0-40); AST/SGOT 34.0 U/L (<34); CALCIUM LEVEL 8.8 MG/DL (8.3-10.6); CARBON DIOXIDE LEVEL 25.0 MMOL/L (20-31); CHLORIDE LEVEL 107.0 MMOL/L (98-107); CREATININE FOR GFR 1.65 MG/DL (0.70-1.30); GLOMERULAR FILTRATION RATE 44.1 (>42); POTASSIUM SERUM 4.9 MMOL/L (3.5-5.1); SODIUM LEVEL 142.0 MMOL/L (136-145)
== END ==
LOC: M PLALAB 11:54
PROVIDERS: ATTEND Internal Medicine Infectious Disease
DX: L03.119 Cellulitis of unspecified part of limb (principal); R31.9 Hematuria, unspecified; Z12.5 Encounter for screening for malignant neoplasm of prostate
CPT/HCPCS: 36415; 80053; 81001; 85025; 85652; 86140; 87086; G0103

== ENCOUNTER → 2025-02-08 | Outpatient (REF) | payer MEDICARE, BC | LOC: M SFHCDERM 18:26 | PROVIDERS: ATTEND Physician Assistant | DX: L82.1 Other seborrheic keratosis (principal) ==